=== PATIENT | male | born 2000 | race African-American/Black ===

== ENCOUNTER 2024-08-15 19:07 | Emergency (ER) | payer BC, OTHER, SELFPAY ==
[2024-08-15 19:07] VITALS: BP 152/95; PULSE 98; RESP 16; TEMP 36.9; O2SAT 99; BMI 30.3
[2024-08-15 20:16] LABS: Absolute Lymphocyte Count 1.12 X10^3/uL (0.83-4.51); Basophil# 0.05 X10^3/uL; Basophil% 0.4 % (0-1); Eosinophil# 0.05 X10^3/uL; Eosinophils% 0.4 % (0-5); Hematocrit 45.7 % (40-54); Hemoglobin 15.4 g/dL (13.0-16.5); Lymphocyte # 1.12 X10^3/ul (0.83-4.51); Mean Corp Hgb Conc 33.7 g/dL (32-36); Mean Corpuscular Hgb 32.2 pg (27.0-32.0); Mean Corpuscular Volume 95.4 fL (80-94); Mean Platelet Vol. 9.6 fl (6.2-12.0); Monocyte# 0.64 X10^3/uL; Monocyte% 4.6 % (0-10); NRBC Flagged by Analyzer 0 % (0-5); Neutrophil # 11.96 X10^3/uL (2.7-7.7); Neutrophil % 85.5 % (47-70); Platelet Count 304 K/mm3 (150-450); RBC Distribution Width SD 38.6 fl (35.1-43.9); Red Blood Count 4.79 M/mm3 (4.6-6.2)
[2024-08-15 20:18] LABS: POSITIVE COUNT NO; POSITIVE DIFFERENTIAL NO; POSITIVE MORPHOLOGY NO
[2024-08-15 20:30] LABS: ALB/GLOB Ratio 0.9 RATIO (0.9-2.4); AST(SGOT) 15 U/L (15-37); Alanine Aminotransfer ALT/SGPT 14 U/L (16-61); Albumin, Serum 3.9 g/dL (3.2-5.0); Alkaline Phosphatase 62 U/L (45-117); Anion Gap 4 (5-15); BUN 14 mg/dL (7-18); BUN/Creat Ratio 9.9 RATIO (10-20); Calcium,Total 8.9 mg/dL (8.5-10.1); Chloride 103 mmol/L (98-107); Creatinine, Serum 1.41 mg/dL (0.70-1.30); EST Glomerular Filtration Rate 67 mL/min (>60); Est Glom Filt Rate - Afr Amer 81 mL/min (>60); Estimated Creatinine Clearance 99.24 ml/min; Globulin 4.5 g/dL (2.2-4.2); Glucose 98 mg/dL (74-106); Potassium 3.9 mmol/L (3.5-5.1); Protein, Total 8.4 g/dL (6.4-8.2); Sodium Level 136 mmol/L (136-145)
[2024-08-15 21:26] VITALS: BP 142/86; PULSE 98; RESP 18; TEMP 38.1; O2SAT 100
--- NOTE | 2024-08-15 21:30 | CT_ITS ---
STUDY: CT ABDOMEN AND PELVIS WITH CONTRAST REASON FOR EXAM: Male, 23 years old. RLQ pain RADIATION DOSAGE (If Supplied By Facility): CTDIvol = ( 13.03 ) mGy, DLP = ( 1032.86 ) mGycm TECHNIQUE: Transaxial images were obtained from the dome of the diaphragm to the symphysis pubis without oral contrast. IV 100mL Isovue-370 was administered. Sagittal and coronal images were reconstructed. Individualized dose optimization techniques were used for this CT. COMPARISON: None. FINDINGS: The visualized lung bases are unremarkable. The visualized portions of the heart are within normal limits. Normal liver. Normal gallbladder and extrahepatic biliary system. Normal spleen. Normal pancreas. Normal bilateral adrenal glands. Normal right kidney. Normal left kidney. Normal visualized stomach. Normal small intestine. Normal colon. The appendix is visualized and appears normal. Normal abdominal aorta. Normal inferior vena cava. Normal retroperitoneum. Normal urinary bladder. Normal abdominal wall. Normal osseous structures. CT/Abdomen/Pelvis W IV Cont ONLY IMPRESSION: No definite acute or significant abnormality seen. Electronically Signed: Odilon Jasso MD at 22:54 EST ,
[2024-08-15] MEDS: 0.9% Normal Saline (1000mL) 1,000 ML 999 ML IV (21:39)
[2024-08-15] MEDS: Acetaminophen 500 MG Tablet 1000 MG PO (21:39)
[2024-08-15] MEDS: Ondansetron 4 MG/2 ML Vial IV (21:39)
[2024-08-15] MEDS: Morphine 4 MG/ML Syringe IV (21:39)
[2024-08-15 23:00] VITALS: PULSE 103; RESP 18; O2SAT 100
[2024-08-15 23:02] LABS: Bacteria 0 SEEN /hpf (None Seen); Mucous, Urine 0 SEEN /hpf (<or=2+); Red Blood Cells-Urine 0 SEEN /hpf (0-5); Squamous Epithelial Cells - UA 0 SEEN /hpf (0-5); White Blood Cells 0 SEEN /hpf (0-5)
[2024-08-15 23:04] LABS: Color, Urine Yellow (Yellow); Glucose, Dipstick Normal (Normal); Ketone-Dipstick 5 mg/dl (Negative); Leukocyte Esterase-Dipstick Negative /ul (Negative); Nitrite-Dipstick Negative (Negative); Occult Blood-Urine 150 /ul (Negative); Protein-Dipstick 30 mg/dl (Negative); Urine Bilirubin Dipstick Negative (Negative); Urine Clarity Clear (Clear); Urine Urobilinogen 1 mg/dl (Normal)
--- NOTE | 2024-08-15 23:10 | EX.ED.DYSGE1 ---
HPI History of Present Illness Chief Complaint: Abd Pain Narrative Narrative: Patient is a 23-year-old male who presents to the emergency department chief complaint of abdominal pain, fever, chills, nausea not feeling well. He states that the was sent here by urgent care secondary to his symptoms. They noted that at urgent care he was noted to have a fever and states that he has not taken anything for his fever. Patient denies any previous abdominal surgeries. Patient states that his symptoms started earlier today. [facility] Medical History MCL sprain of right knee Medical History no medical history Home Medications ?Medication ?Instructions ?Recorded ?Last Taken ?Type dicyclomine 20 mg tablet 20 mg PO TID #20 tabs 08/15/24 Unknown Rx ondansetron 4 mg disintegrating 4 mg PO Q6H PRN nausea and 08/15/24 Unknown Rx tablet vomiting #30 tabs Allergy/AdvReac Type Severity Reaction Status Date / Time No Known Allergies Allergy Verified 08/15/24 19:09 Social History Smoking Status: Current every day smoker tobacco type: e-cigarettes ROS ROS ED ROS Narrative Constitutional: Complains of fever and chills noted above denies any headaches Respiratory: Denies coughing wheezing shortness of breath Abdomen: Complains of abdominal pain as noted above and nausea : Denies any urinary symptoms Neurological: Denies any numbness, weakness, tingling Musculoskeletal: Denies back pain Skin: Denies any rashes or lesions EXAM Physical Exam Narrative Exam Narrative: General: Patient lying in bed rest comfortably did not appear to be in acute distress Head: Atraumatic, normocephalic Eyes: PERRL bilaterally, EOMI bilateral, no conjunctival injection noted Neck: Soft, supple, trachea midline Cardiovascular: Regular rate and rhythm no murmurs gallops rubs noted Respiratory: Clear to auscultation bilaterally Abdomen: Soft, nondistended, diffuse tenderness to palpation no rebound or guarding on exam, bowel sounds present x 4 Extremities: +5/5 strength noted in the bilateral upper and lower extremities, radial pulses +2/4 in the bilateral per extremities Neurological: Patient following commands knew that he was at [facility] years 2023 Skin: Warm, dry, intact Const Vital Signs: 12/30/24 19:07 08/15/24 21:26 08/15/24 23:00 Temperature 98.4 F 100.5 F H Temperature Source Oral Oral Pulse Rate 98 98 103 H Respiratory Rate 16 18 18 Blood Pressure 152/95 H 142/86 H Blood Pressure Mean 114 104 Pulse Ox 99 100 100 Oxygen Delivery Method Room Air Room Air Room Air MDM MDM MDM Narrative Medical decision making narrative: Patient is a 23-year-old male who presented to the emerged part with chief complaint of abdominal pain nausea, fever, chills. Patient will have a workup performed here on the differential diagnose includes but not limited to appendicitis, cholecystitis, pancreatitis, viral gastroenteritis. Once workup is obtained reviewed he will be reevaluated. Patient be given morphine Zofran. Patient's CBC was reviewed and showed a white blood cell count of 14,000, hemoglobin is 15.4, platelet count noted be normal at 304. Patient sodium normal at 136, potassium normal at 3.9, creatinine was 1.41. Patient's AST and ALT were 15 and 14 respectively. Patient's urinalysis is pending. Patient's CT abdomen pelvis with IV contrast reviewed showed no acute or significant abnormality noted. Patient tested negative for COVID flu and RSV. On reevaluation the patient he is feeling better he would like to go home at this point time. Patient was advised that he likely has a virus and was advised to continue supportive care with hydration as well as rotating Tylenol and ibuprofen [id number]. Patient was encouraged to use prescriptions of Bentyl and Zofran as prescribed. He is to follow-up with his primary care physician and return with worsening symptoms or any concerns. Lab Data Labs: Laboratory Results - last 24 hr 08/15/24 19:55 WBC 14.0 H RBC 4.79 Hgb 15.4 Hct 45.7 MCV 95.4 H MCH 32.2 H MCHC 33.7 RDW Std Deviation 38.6 RDW Coeff of Luz 11.0 L Plt Count 304 MPV 9.6 Immature Gran % (Auto) 1.100 H Neut % (Auto) 85.5 H Lymph % (Auto) 8.0 L [place] % (Auto) 4.6 Eos % (Auto) 0.4 Baso % (Auto) 0.4 Absolute Neuts (auto) 12.0 H Absolute Lymphs (auto) 1.12 Nucleated RBC % 0 Sodium 136 Potassium 3.9 Chloride 103 Carbon Dioxide 29.0 Anion Gap 4 L BUN 14 Creatinine 1.41 H Estim Creat Clear Calc 99.24 Est GFR (MDRD) Af Amer 81 Est GFR (MDRD) Non-Af 67 BUN/Creatinine Ratio 9.9 L Glucose 98 Calcium 8.9 Total Bilirubin 0.50 AST 15 ALT 14 L Alkaline Phosphatase 62 Total Protein 8.4 H Albumin 3.9 Globulin 4.5 H Albumin/Globulin Ratio 0.9 Radiography Diagnostic Testing: Clinical Impression(s) from Imaging Studies Abdomen/Pelvis CT 08/15/24 21:30 IMPRESSION: No definite acute or significant abnormality seen. Electronically Signed: Odilon Jasso MD at 22:54 EST , Discharge Plan Triage Chief Complaint: Abd Pain ED Provider: Derek Wilcox Dx/Rx/DC Orders Clinical Impression: Viral gastroenteritis, Fever, Abdominal pain Prescriptions: New ondansetron 4 mg tablet,disintegrating 4 mg PO Q6H PRN (Reason: nausea and vomiting) Qty: 30 0RF dicyclomine 20 mg tablet 20 mg PO TID Qty: 20 0RF Primary Care Provider: Care Physician,No Primary Referrals: Care Physician,No Primary [Primary Care Provider] - Alice Sheikh [facility], DO [[facility]] - Activity Restrictions/Additional Instructions: Follow-up your primary care physician you referred to 1 if you do not have one already. Use prescriptions as prescribed. Return with worsening symptoms or concerns. Rotate Tylenol and ibuprofen [id number] for fever control. Print Language: [place]ian Disposition Disposition: Home, Self Care
== END 2024-08-15 23:53 | disposition home or self-care (01) ==
PROVIDERS: Emergency Provider Emergency Medicine; Visit Provider Emergency Medicine
DX: A08.4 Viral intestinal infection, unspecified (principal); R50.9 Fever, unspecified; F17.290 Nicotine dependence, other tobacco product, uncomplicated
CPT/HCPCS: 74177; 80053; 81001; 85025; 87631; 96361; 96374; 96375; 99283; Q9967; A4216; J2405